=== PATIENT | male | born 1965 | race Caucasian/White ===

== ENCOUNTER 2016-07-25 04:56 | Emergency (ER) | payer OTHER ==
[~2016-07-25] VITALS: Ht 162.6 cm; Wt 80.5 kg
[2016-07-25 04:58] VITALS: Ht 162.6 cm; Wt 80.5 kg
[2016-07-25] MEDS ORDERED: morphine 2 MG INJ IV STA (05:21)
[2016-07-25] MEDS ORDERED: ONDANSETRON 4 MG INJ IV STA (05:21)
[2016-07-25] MEDS ORDERED: NITROGLYCERIN 2% 1 GM OINT PKT TD STA (05:21)
[2016-07-25] MEDS ORDERED: ASPIRIN 81 MG TAB PO STA (05:21)
[2016-07-25 05:51] LABS: ADD SCAN DIFF NO
[2016-07-25 05:53] LABS: BASOPHIL # 0.1 10^3/ul (0.0-0.1); BASOPHILS % 0.8 % (0.0-2.0); EOSINOPHILS # 0.3 10^3/ul (0.0-0.5); EOSINOPHILS % 3.9 % (0.0-7.0); HEMATOCRIT 49.1 % (42.0-52.0); HEMOGLOBIN 16.9 g/dl (14.0-18.0); LYMPHOCYTES # 3.7 10^3/ul (0.8-2.9); LYMPHOCYTES % 44.5 % (15.0-51.0); MEAN CORPUSCULAR HEMOGLOBIN 32.2 pg (29.0-33.0); MEAN CORPUSCULAR HGB CONC 34.4 g/dl (32.0-37.0); MEAN CORPUSCULAR VOLUME 93.5 fl (82.0-101.0); MEAN PLATELET VOLUME 9.5 fl (7.4-10.4); MONOCYTE # 0.7 10^3/ul (0.3-0.9); MONOCYTES % 8.8 % (0.0-11.0); NEUTROPHIL # 3.5 10^3/ul (1.6-7.5); NEUTROPHILS % 41.9 % (39.0-77.0); PLATELET COUNT 333 10^3/UL (140-415); RED BLOOD COUNT 5.25 10^6/ul (4.70-6.10); WHITE BLOOD COUNT 8.3 10^3/ul (4.8-10.8)
[2016-07-25 06:08] LABS: INR 0.79; PT RATIO 0.9
--- NOTE | 2016-07-25 06:14 | RADRPT ---
PROCEDURE: Chest. CLINICAL INDICATION: Chest pain. TECHNIQUE: Single frontal view of the chest was obtained. COMPARISON: None. FINDINGS: The cardiac silhouette is magnified. The aortic arch is unremarkable. There is no focal consolidat ion, vascular congestion or pleural effusion. There is no pneumothorax. IMPRESSION: No evidence for active cardiopulmonary disease. .Ezio Leong MD, MD Date Time Electronically viewed and signed by .Ezio Leong MD, MD on 07/25/2016 06:14 .T/
[2016-07-25 07:17] LABS: D-DIMER 447.2 ng/ml (<460)
[2016-07-25 07:27] LABS: ALBUMIN 4.4 g/dl (3.3-4.9); CHLORIDE 104 mmol/L (97-110); SODIUM 141 mmol/L (135-144)
[2016-07-25 07:28] LABS: POTASSIUM 3.8 mmol/L (3.5-5.1)
[2016-07-25 07:30] LABS: ALANINE AMINOTRANSFERASE 110 IU/L (13-69); ALBUMIN/GLOBULIN RATIO 1.37; ALKALINE PHOSPHATASE 95 IU/L (42-121); ANION GAP 17 (8-16); ASPARTATE AMINO TRANSFERASE 61 IU/L (15-46); BILIRUBIN,INDIRECT 0.1 mg/dl (0-1.1); BILIRUBIN,TOTAL 0.1 mg/dl (0.2-1.3); BLOOD UREA NITROGEN 19 mg/dl (7-20); CARBON DIOXIDE 24 mmol/L (21-31); CREATININE 1.07 mg/dl (0.61-1.24); TOTAL PROTEIN 7.6 g/dl (6.1-8.1)
[2016-07-25 07:31] LABS: CALCIUM 9.2 mg/dl (8.4-10.2); GLUCOSE 129 mg/dl (70-220)
[2016-07-25 07:39] LABS: B-TYPE NATRIURETIC PEPTIDE 25 PG/ML (0-125)
[2016-07-25 07:42] LABS: TROPONIN-I < 0.012 ng/ml (0.00-0.12)
[2016-07-25] MEDS ORDERED: BUPR150T18 PO (08:23)
[2016-07-25] MEDS ORDERED: MODA200T35 PO (08:23)
[2016-07-25 08:46] VITALS: BP 120/80; PULSE 85; RESP 17
--- NOTE | 2016-07-25 08:56 | ERD ---
ER Documentation Chief Complaint Date/Time DATE: 07/25/16 TIME: 08:49 Chief Complaint cp that woke him up from sleep radiation to left arm HPI 51-year-old male with no significant past medical history other than mild untreated hypertension presenting with chest pain that woke him up from his sleep. It was in the left side of his upper chest, near his axilla, radiating into his shoulder and arm. Pain was unprovoked. It's been a persistent pain ever since. Nothing seems to make it better or worse. He had a nitroglycerin patch applied when he got here, and it hasn't helped significantly. He does admit he took one of his dad's blood pressure medications prior to coming here as his systolic blood pressure was in the 170s at home. He denies any focal weakness or numbness. He denies any difficulty breathing, dizziness, nausea, vomiting. No recent fevers, chills, coughing. ROS All systems reviewed and are negative except as per history of present illness. Medications Home Meds Reported Medications Bupropion Hcl* (Bupropion Hcl SR*) 150 Mg Tablet.er, 150 MG PO BID, TAB.SA 07/25/16 Modafinil* (Modafinil*) 200 Mg Tablet, 200 MG PO BID, TAB 07/25/16 Allergies Allergies: Coded Allergies: Penicillins (Unverified Allergy, Unknown, TOLD BY MOM A BOY, 07/25/16) PMhx/Soc Medical and Surgical Hx: pt denies Surgical Hx Hx Cardiac Disorders: Yes (HTN ) Hx Alcohol Use: No Hx Substance Use: No Hx Tobacco Use: No Smoking Status: Current every day smoker FmHx Family History: diabetes (father), No coronary disease Physical Exam Vitals Vital Signs Date Time Temp Pulse Resp B/P Pulse Ox O2 Delivery O2 Flow Rate FiO2 07/25/16 08:46 85 17 120/80 99 Room Air 07/25/16 04:58 96.9 115 20 178/112 97 Physical Exam Const: Well-appearing, in no apparent distress, nontoxic Head: Atraumatic Eyes: Normal Conjunctiva. PERRLA, EOMI ENT: Normal External Ears, Nose and Mouth. Neck: Full range of motion. No meningismus. Resp: Clear to auscultation bilaterally Cardio: No chest wall tenderness to palpation, Regular rate and rhythm, no murmurs. 2+ radial pulses bilaterally, equal. 2+ DP and PT pulses bilaterally, equal Abd: Soft, non tender, non distended. Normal bowel sounds Skin: No petechiae or rashes Back: No midline or flank tenderness Ext: No cyanosis, or edema. No calf tenderness Neur: Awake and alert and oriented 3, cranial nerves intact, strength and sensations intact in all 4 extremities Psych: Normal Mood and Affect Result Diagram: 07/25/16 0510 07/25/16 0510 Results 24 hrs Laboratory Tests Test 07/25/16 05:10 07/25/16 08:04 White Blood Count 8.310^3/ul Red Blood Count 5.2510^6/ul Hemoglobin 16.9g/dl Hematocrit 49.1% Mean Corpuscular Volume 93.5fl Mean Corpuscular Hemoglobin 32.2pg Mean Corpuscular Hemoglobin Concent 34.4g/dl Red Cell Distribution Width 13.0% Platelet Count 04446^3/UL Mean Platelet Volume 9.5fl Neutrophils % 41.9% Lymphocytes % 44.5% Monocytes % 8.8% Eosinophils % 3.9% Basophils % 0.8% Nucleated Red Blood Cells % 0.0/100WBC Neutrophils # 3.510^3/ul Lymphocytes # 3.710^3/ul Monocytes # 0.710^3/ul Eosinophils # 0.310^3/ul Basophils # 0.110^3/ul Nucleated Red Blood Cells # 0.010^3/ul Prothrombin Time 11.0Sec Prothrombin Time Ratio 0.9 INR International Normalized Ratio 0.79 Activated Partial Thromboplast Time 26.0Sec D-Dimer 447.20ng/ml D-Dimer Comment Sodium Level 141mmol/L Potassium Level 3.8mmol/L Chloride Level 104mmol/L Carbon Dioxide Level 24mmol/L Anion Gap 17 Blood Urea Nitrogen 19mg/dl Creatinine 1.07mg/dl Glucose Level 129mg/dl Calcium Level 9.2mg/dl Total Bilirubin 0.1mg/dl Direct Bilirubin 0.00mg/dl Indirect Bilirubin 0.1mg/dl Aspartate Amino Transf (AST/SGOT) 61IU/L Alanine Aminotransferase (ALT/SGPT) 110IU/L Alkaline Phosphatase 95IU/L Troponin I < 0.012ng/ml < 0.012ng/ml B-Type Natriuretic Peptide 25PG/ML Total Protein 7.6g/dl Albumin 4.4g/dl Globulin 3.20g/dl Albumin/Globulin Ratio 1.37 Current Medications Medications (Trade) Dose Ordered Sig/Sylvester Route PRN Reason Start Time Stop Time Status Last Admin Dose Admin Aspirin (Aspirin) 162 mg ONCE STAT PO 07/25/16 05:21 07/25/16 05:23 DC 07/25/16 05:30 Nitroglycerin (Nitroglycerin 2% Oint) 1 inch ONCE STAT TD 07/25/16 05:21 07/25/16 05:23 DC 07/25/16 05:30 Morphine Sulfate (morphine) 2 mg ONCE STAT IV 07/25/16 05:21 07/25/16 05:23 DC 07/25/16 05:30 Ondansetron HCl (Zofran Inj) 4 mg ONCE STAT IV 07/25/16 05:21 07/25/16 05:23 DC 07/25/16 05:30 Procedures/MDM EMERGENT LABS AND DIAGNOSTIC STUDIES: Lab Results above were reviewed and interpreted by me. CBC, CMP, troponin are all within normal limits. Repeat troponin is within normal limits. D-dimer within normal limits 12-lead EKG was interpreted by Ivania Roy MD: EKG #1: Rate/Rhythm: Normal Sinus Rhythm QRS, ST, T-waves: Incomplete right bundle branch block Impression: No evidence of ischemia or arrhythmia EKG #2: Rate/Rhythm: Normal Sinus Rhythm QRS, ST, T-waves: Incomplete right bundle branch block Impression: No evidence of ischemia or arrhythmia Radiology Results as interpreted by Radiology below were reviewed by Teresa Roy MD: Chest x-ray shows no acute abnormalities, no mediastinal widening Initial Nursing notes reviewed. Previous Medical Records requested via the Electronic Health Record. EMERGENCY DEPARTMENT COURSE / MEDICAL DECISION MAKING: The patient presents with chest pain. Vitals are stable. I considered pulmonary embolism, aortic dissection, pneumothorax among other diagnoses. Evaluation for acute coronary syndrome was performed. The HEART score was utilized for risk stratification and found to be 3. Repeat EKG and troponin @ 3 hours were unchanged. Based on this evaluation the patient's risk of major adverse cardiac events is <1%. Shared decision making occurred with patient and the decision has been made to discharge the patient for outpatient evaluation and functional study within 72 hours. Patient instructed to arrange follow up with PCP in the next 2 days and return to the ED for any new or worsening symptoms. Departure Diagnosis: Primary Impression: Chest pain Chest pain type: other chest pain Qualified Code: R07.89 - Other chest pain Condition: Stable EKTEJAL HERNÁNDEZ MD Jul 25, 2016 08:56
== END 2016-07-25 09:31 | disposition home or self-care (01) ==
LOC: E/R 04:56
DX: R07.89 Other chest pain (principal); I10 Essential (primary) hypertension; F17.210 Nicotine dependence, cigarettes, uncomplicated
CPT/HCPCS: 36415; 71010; 80053; 83880; 84484; 85025; 85378; 85610; 85730; 93005; 96374; 96375; 99285; J2270; J2405